=== PATIENT | male | born 1950 | race Caucasian/White ===

== ENCOUNTER 2023-03-09 17:44 | Emergency (ER) | payer MEDICARE, SELFPAY ==
[2023-03-09] VITALS (8 sets, daily range): BP systolic 100–131; BP diastolic 63–95; PULSE 122–151; RESP 16–20; TEMP 36.6; O2SAT 97–100; BMI 26.9; BMI 27.3
--- NOTE | ~2023-03-09 | CT_ITS ---
EXAMINATION: CTA CHEST PE STUDY CLINICAL INFORMATION: tachycardia, SOB, elevated D-dimer COMPARISON: No pertinent prior studies are available for comparison. TECHNIQUE: Prior to contrast administration, noncontrast localization images were obtained. After the administration of 65 mL of Omnipaque nonionic IV contrast, contiguous thin slice helical images were obtained through the thorax. Reformatted MIP images in the coronal and sagittal planes were obtained at the acquisition workstation. This CT examination was performed using dose optimization techniques as appropriate, variously including the following: *Automated exposure control *Adjustment of mA and/or kV according to patient size (this includes techniques or standardized protocols for targeted exams where dose is matched to indication/reason for exam; i.e. extremities or head) *Use of iterative reconstruction technique DLP: 273 mGy-cm. FINDINGS: The bolus timing on this study was acceptable for visualization of the pulmonary arterial tree. Bilateral pulmonary emboli are seen the left-sided pulmonary emboli are seen in the left main pulmonary artery with subtle emboli extending into the left upper lobe and left lower lobe branches with additional segmental and subsegmental emboli in the left lower lobe. On the right side there is subsegmental pulmonary emboli seen in the proximal right lower lobe pulmonary artery with subsegmental disease seen elsewhere in the right lower lobe. There also is irregularity seen within the very dilated right atrium suggesting the possibility of right atrial emboli present at this time. Bilateral moderate-sized pleural effusions with associated dependent airspace disease likely reflecting a component of atelectasis. I do not appreciate any abnormal pulmonary nodules or masses are appreciated. No significant hilar or mediastinal adenopathy. There is no evidence of pleural effusion or pneumothorax. The heart is enlarged with marked biatrial enlargement in particular. There is dilatation of the inferior vena cava and hepatic veins suggesting increased right-sided heart pressures although there is no significant septal bowing to suggest significant right heart strain. Great vessels are normal. Otherwise the mediastinum is unremarkable. There is no pericardial effusion or pericardial thickening. Limited evaluation of the upper abdominal viscera is unremarkable. CT/CT angio chest PE protocol IMPRESSION: 1. Bilateral pulmonary emboli more prominent on the left. There is also an apparent filling defect along the anterolateral wall of the dilated right atrium suggesting the possibility of right atrial emboli. 2. Bilateral pleural effusions and dependent bibasilar airspace disease. 3. VTE: Positive This critical result was discussed with at 03/09/2023 10:31 PM and it was ascertained that the content and urgency of the report was understood at the time of direct communication.
--- NOTE | 2023-03-09 18:02 | ED_ITS ---
HPI - General Adult General Chief complaint: Arrhythmia/Palpitations Stated complaint: sob, oksana.lower leg swelling Time Seen by Provider: 03/09/23 18:22 Source: patient Mode of arrival: ambulatory Limitations: no limitations History of Present Illness HPI narrative: a 73-year-old male known to be healthy came in today for generalized weakness, exertional dyspnea, bilateral lower extremities swelling. Patient's symptoms started about 5 weeks ago with upper respiratory viral symptoms and coughing ever since patient do not feel normal, notice there is a progressive swelling of both lower extremities with tenderness and exertional dyspnea which limits the patient ambulation at home. Patient also sometimes feel lightheadedness and dizziness. Patient went to the kids seen a 5 days ago somebody cleaned the machine with excessive Clorox patient started to cough after smelling the detergent, patient reported coughing blood for the past 5 days after this incident. No known past medical history except for asthma and patient use brother albuterol pump if needed. No chest pain, no abdominal pain, no nausea, no vomiting. Related Data Allergies Allergy/AdvReac Type Severity Reaction Status Date / Time lactase [From Dairy Aid] Allergy Intermediate Hives Verified 03/09/23 17:54 Review of Systems 2 Review of Systems: All other systems are reviewed and are negative Constitutional: Reports as per HPI and Reports no additional constitutional complaints Eyes: Reports as per HPI and Reports no additional eye complaints Reports system reviewed and no additional complaints, except as documented Cardiovascular: Reports as per HPI and Reports no additional cardiovascular complaints Respiratory: Reports as per HPI and Reports no additional respiratory complaints Gastrointestinal: Reports as per HPI and Reports no additional gastrointestinal complaints Genitourinary: Reports no additional female genitourinary complaints Musculoskeletal: Reports no additional musculoskeletal complaints Skin/Breast: Reports system reviewed and no additional complaints, except as docu Psychiatric: Reports no additional psychiatric complaints Endocrine: Reports no additional endocrine complaints Hematologic/Lymphatic: Reports no additional hematologic/lymphatic complaints Allergic/Immunologic: Reports no additional allergic/immunologic complaints Reports system reviewed and no additional complaints, except as documented and Reports Abnormal speech present [facility] Social History Social History Smoked in Last 30 Days: No Use of substances other than those prescribed or required for medical reasons: No Advance Directives: No Advance Directives Information Provided: No Physical Exam ED Vital Signs: Vital Signs - 24 hr 03/09/23 17:55 03/09/23 18:58 03/09/23 19:20 Temperature 97.9 F 97.9 F Pulse Rate 147 H 131 H 139 H Respiratory Rate 20 20 Blood Pressure 126/87 110/85 100/63 Pulse Oximetry 100 100 Oxygen Delivery Method Room Air Room Air 03/09/23 19:55 03/09/23 20:10 03/09/23 23:38 Temperature Pulse Rate 137 H 151 H 136 H Respiratory Rate 18 16 Blood Pressure 122/95 H 131/84 112/79 Pulse Oximetry 97 Oxygen Delivery Method Room Air 03/09/23 23:51 03/10/23 02:02 Temperature Pulse Rate 141 H Respiratory Rate 20 Blood Pressure 126/89 Pulse Oximetry 97 96 Oxygen Delivery Method Room Air Room Air BMI result Body Mass Index 27.3 Vital signs have been reviewed and appear to be correct. Blood pressure elevated. Heart rate normal. Respiratory rate normal. Temperature normal. Oxygen saturation normal. Appearance: Alert. Oriented X3. No acute distress. Head: Normal external exam. Normocephalic. Atraumatic. No Montes signs noted. No raccoon eyes noted Eyes: PERRLA. EOMI. Conjunctiva and sclera normal. Eyelids normal. ENT: TM's Normal. Pharynx normal. Uvula midline. Moist mucous membranes. No trismus noted. No drooling noted. No muffled voice noted. Neck: Normal inspection. Neck supple. FROM. No adenopathy. Thyroid Normal. No meningeal signs. No neck mass noted. CVS: Rapid irregular heart rate. Heart sound normal. No murmurs noted. Pulses normal throughout. Respiratory: No respiratory distress. Painless inspiration. Breath sounds normal. No wheezes/rales/rhonchi noted. Chest nontender. No accessory muscle usage noted or decreased air movement noted. Abdomen: Soft and nontender. Bowel sounds normal in all 4 quadrants. No distention noted. No organomegaly noted. No visible injury noted. Back: No CVA tenderness. Full range of motion noted. Skin: Skin warm and dry. Normal skin color. Normal skin turgor. No rashes/lesions/lacerations noted. Extremities: No lower extremity edema. Extremities exhibit normal range of motion. Extremities nontender. Neuro: Oriented X 3. Cranial nerve exam: II-XII are grossly intact No motor deficit. No sensory deficit. Reflexes normal. Course Course Course Narrative: This is a rapid medical exam: Additional HPI, ROS, PE not included below will be deferred to primary provider. Patient is a 73-year-old male presenting to the ED with complaint of dyspnea and Lower extremity edema worsening over the past week. States symptoms began around Thanksgiving. Feels symptoms began to worsen after he was exposed [place]es [place] . 3+ pitting edema bilat lower extremities, tachycardic to 145-150 in triage, no history of afib, nailbeds dusky and difficulty obtaining O2 sat. Plan: EKG, labs, CXR, weigher and charger notified for room in main ED Reevaluation(s) Reevaluation #1: a 73-year-old male with no known past medical history never seen PCP in the past presented today with few weeks off progression of exertional dyspnea and lower extremity swelling and edema found today to have the following. 1. New onset atrial fibrillation started the patient on IV Cardizem with a temporary control of atrial fibrillation then patient was given a load of digoxin and metoprolol heart rate is in 120s to 130s. 2. Elevated D-dimer and CT angio of the chest showing multiple pulmonary embolism was signed off straining of the right side of the heart, patient still hemodynamically stable case discussed with who recommended not to thrombolysis the patient since he is stable and start heparin drip and transferred the patient to another facility. 3. Case discussed with [facility] awaiting still for final approval. Time: 01:09 Reevaluation #2: case discussed with [facility] transfer line patient has been accepted to [facility] emergency department accepting physician is Dr. Schwartz. Time: 01:50 Medications Administered Generic Name Dose Route Start Last Admin Trade Name Freq PRN Reason Stop Dose Admin Diltiazem HCl 125 mg/ Sodium 125 mls @ 0 mls/hr 03/09/23 19:15 03/09/23 20:13 Chloride IVCONT 0 mg/hr .Q0M REGINALD 0 mls/hr Titration Protocol Per Protocol Heparin Sodium/Sodium Chloride 25,000 unit in 250 mls @ 0 mls/hr 03/09/23 23:15 03/10/23 00:04 Heparin Sodium,Porcine/1/2ns IVCONT 14 units/kg/hr .Q0M REGINALD 12.45 mls/hr Administration Protocol Per Protocol Discontinued Medications Generic Name Dose Route Start Last Admin Trade Name Conner PRN Reason Stop Dose Admin Aspirin 81 mg 03/09/23 18:28 03/09/23 18:41 Aspirin Enteric Coated 81 Mg Tablet. PO 03/09/23 18:29 81 mg ONCE ONE Administration Digoxin 0.25 mg 03/09/23 21:07 03/09/23 21:27 Digoxin 0.5 Mg/2 Ml Ampul IVPUSH 03/09/23 21:08 0.25 mg ONCE ONE Administration Diltiazem HCl 20 mg 03/09/23 18:28 03/09/23 18:41 Diltiazem Hcl 50 Mg/10 Ml Vial IVPUSH 03/09/23 18:29 20 mg STAT STA Administration Heparin Sodium (Porcine) 7,000 unit 03/09/23 23:15 03/10/23 00:00 Heparin Sodium,Porcine 5,000 Unit/Ml Vial 80 unit/kg (7000 unit) 03/09/23 23:16 7,000 unit IVPUSH Administration ONCE ONE Metoprolol Tartrate 5 mg/ 55 mls @ 230 mls/hr 03/10/23 01:42 03/10/23 01:55 Sodium Chloride IV 03/10/23 01:56 230 mls/hr ONCE ONE Administration Iohexol 100 ml 03/09/23 21:48 03/09/23 21:48 Iohexol 350 Mg/Ml 100 Ml Infus..Btl IV 03/09/23 21:49 65 ml ONCE ONE Administration Metoprolol Tartrate 7.5 mg 03/09/23 21:15 03/09/23 21:27 Metoprolol Tartrate 5 Mg/5 Ml Vial IV 03/09/23 21:16 7.5 mg ONCE ONE Administration Medical Decision Making Differential Diagnosis Differential Diagnoses: The differential diagnosis associated with the presentation includes ( New onset atrial fibrillation, congestive heart failure, ACS, pulmonary embolism, pneumonia, pneumothorax, electrolyte abnormality, severe anemia.) Admission/Observation Consideration of admission/observation: Escalation of care including admission/observation considered Lab Data MDM Lab Attestation statement: I reviewed the patient's lab results. 03/09/23 23:50 03/09/23 18:38 Labs: Lab Results 03/09/23 03/09/23 03/09/23 Range/Units 18:37 18:38 18:39 WBC 17.0 H (4.8-10.8) X10*3/uL RBC 5.14 (4.60-5.80) X10*6/uL Hgb 16.7 (14.0-18.0) g/dl Hct 50.4 (42.0-52.0) % MCV 98.1 H (80.0-98.0) fL MCH 32.5 (27.0-33.0) pg MCHC 33.1 (31.0-36.0) g/dl RDW 13.9 (11.0-16.0) % Plt Count 128 L (160-400) X10*3/uL MPV 11.9 (9.4-12.4) fL Immature Gran % (Auto) 0.4 (0.0-0.4) % Neut % (Auto) 88.1 H (45-73) % Lymph % (Auto) 2.8 L (20-40) % [place] % (Auto) 8.6 (2-11) % Eos % (Auto) 0.0 (0-4) % Baso % (Auto) 0.1 (0-2) % Lymph # (Auto) 0.5 L (1.2-4.9) X10*3/uL [place] # (Auto) 1.5 H (0.1-1.2) X10*3/uL Eos # (Auto) 0.0 (0.0-0.4) X10*3/uL Baso # (Auto) 0.0 (0.0-0.2) X10*3/uL Abs Immat Gran (auto) 0.07 H (0.00-0.03) X10*3/uL Absolute Neuts (auto) 15.0 H (2.0-8.3) x10*3/uL Absolute Nucleated RBC 0.040 H (0.0-0.012) X10*3/uL Nucleated RBC % (auto) 0.2 (0.0-0.2) /100WBC PT 18.5 H (11.1-13.3) SEC INR 1.5 H (0.9-1.1) aPTT Heparin Protocol (53-77.9) SEC D-Dimer High Sensitivty 8812 NG/ML Sodium 137 (135-145) mmol/L Potassium 5.5 H (3.3-5.1) mmol/L Chloride 103 (96-108) mmol/L Carbon Dioxide 21 L (22-29) mmol/L Anion Gap 19 (12-20) BUN 51 H (9-16) mg/dL Creatinine 1.33 (0.5-1.4) mg/dL Estim Creat Clear Calc 54.2 Estimated GFR 53 Random Glucose 120 H (60-115) mg/dL Calcium 9.1 (8.4-10.2) mg/dL Total Bilirubin 4.2 H (0.0-1.0) mg/dL AST 39 H (5-37) U/L ALT 75 H (0-40) U/L Alkaline Phosphatase 171 H (39-117) U/L Troponin I High Sens 23.7 (<3.5-35.0) ng/L B-Natriuretic Peptide 1281 H (<100) pg/mL Total Protein 6.6 (6.5-8.0) g/dL Albumin 3.4 L (3.5-5.0) g/dL Urine Color Urine Appearance Urine pH (5.0-9.0) Ur Specific [place] (1.005-1.025) Urine Protein (Neg-Trace) mg/dL Urine Glucose (UA) (Negative) mg/dL Urine Ketones (Negative) mg/dL Urine Blood (Negative) Urine Nitrite (Negative) Ur Leukocyte Esterase (Negative) 03/09/23 Range/Units 23:50 WBC 17.6 H (4.8-10.8) X10*3/uL RBC 5.05 (4.60-5.80) X10*6/uL Hgb 16.1 (14.0-18.0) g/dl Hct 48.7 (42.0-52.0) % MCV 96.4 (80.0-98.0) fL MCH 31.9 (27.0-33.0) pg MCHC 33.1 (31.0-36.0) g/dl RDW 14.1 (11.0-16.0) % Plt Count 138 L (160-400) X10*3/uL MPV 11.5 (9.4-12.4) fL Immature Gran % (Auto) (0.0-0.4) % Neut % (Auto) (45-73) % Lymph % (Auto) (20-40) % [place] % (Auto) (2-11) % Eos % (Auto) (0-4) % Baso % (Auto) (0-2) % Lymph # (Auto) (1.2-4.9) X10*3/uL [place] # (Auto) (0.1-1.2) X10*3/uL Eos # (Auto) (0.0-0.4) X10*3/uL Baso # (Auto) (0.0-0.2) X10*3/uL Abs Immat Gran (auto) (0.00-0.03) X10*3/uL Absolute Neuts (auto) (2.0-8.3) x10*3/uL Absolute Nucleated RBC 0.030 H (0.0-0.012) X10*3/uL Nucleated RBC % (auto) 0.2 (0.0-0.2) /100WBC PT 19.1 H (11.1-13.3) SEC INR 1.6 H (0.9-1.1) aPTT Heparin Protocol 31.8 L (53-77.9) SEC D-Dimer High Sensitivty NG/ML Sodium (135-145) mmol/L Potassium (3.3-5.1) mmol/L Chloride (96-108) mmol/L Carbon Dioxide (22-29) mmol/L Anion Gap (12-20) BUN (9-16) mg/dL Creatinine (0.5-1.4) mg/dL Estim Creat Clear Calc Estimated GFR Random Glucose (60-115) mg/dL Calcium (8.4-10.2) mg/dL Total Bilirubin (0.0-1.0) mg/dL AST (5-37) U/L ALT (0-40) U/L Alkaline Phosphatase (39-117) U/L Troponin I High Sens (<3.5-35.0) ng/L B-Natriuretic Peptide (<100) pg/mL Total Protein (6.5-8.0) g/dL Albumin (3.5-5.0) g/dL Urine Color Dark Yellow Urine Appearance Clear Urine pH 5.0 (5.0-9.0) Ur Specific [place] >= 1.030 H (1.005-1.025) Urine Protein Trace (Neg-Trace) mg/dL Urine Glucose (UA) Negative (Negative) mg/dL Urine Ketones Trace (Negative) mg/dL Urine Blood Negative (Negative) Urine Nitrite Negative (Negative) Ur Leukocyte Esterase Negative (Negative) Independent Interpretation I performed an independent interpretation of an: CT Scan ( CT angio of the chest:1. Bilateral pulmonary emboli more prominent on the left. There is also an apparent filling defect along the anterolateral wall of the dilated right atrium suggesting the possibility of right atrial emboli. 2. Bilateral pleural effusions and dependent bibasilar airspace disea) Radiology Impression Discussion of test interpretation with radiology: I have reviewed the radiologist's reading. Critical Care Time Critical Care Time Critical Care Time: Yes Total Critical Care Time: 75 Attestation: I spent 75 minutes providing critical care service to the patient, this including time spent at the bedside to evaluate the patient, reassess the patient, monitoring vital signs, review labs, and radiographic studies, counseling the patient/family, discussing the case with consultants, disposition the patient. Discharge Plan Discharge Clinical Impression: Atrial fibrillation, new onset, Congestive heart failure, Pulmonary embolism Patient Disposition: [facility] Transfer Details: [facility] Emergency Department
--- NOTE | 2023-03-09 18:03 | ECG_ITS ---
Test Reason : AFIB Blood Pressure : / mmHG Vent. Rate : 152 BPM Atrial Rate : 000 BPM P-R Int : 000 ms QRS Dur : 090 ms QT Int : 306 ms P-R-T Axes : 000 035 147 degrees QTc Int : 486 ms Artifact in tracing Atrial fibrillation with rapid ventricular response Low voltage QRS Septal infarct , age undetermined Abnormal ECG No previous ECGs available Referred By: Amy Maddox Electronically Signed By:NAOMY MARIEE
[2023-03-09] MEDS: Aspirin Enteric Coated 81 MG TABLET.DR PO (18:41)
[2023-03-09] MEDS: dilTIAZem HCL 50 MG/10 ML VIAL 20 MG IVPUSH (18:41)
[2023-03-09 18:51] LABS: MANUAL DIFF FLAG NO
[2023-03-09 18:54] LABS: Basophils Percent Auto 0.1 % (0-2); Hematocrit 50.4 % (42.0-52.0); Hemoglobin 16.7 g/dl (14.0-18.0); Imm Gran Abs Auto 0.07 X10*3/uL (0.00-0.03); Imm Gran Pct Auto 0.4 % (0.0-0.4); Lymphocytes Absolute Auto 0.5 X10*3/uL (1.2-4.9); Lymphocytes Percent Auto 2.8 % (20-40); Mean Corpuscular HGB Conc 33.1 g/dl (31.0-36.0); Mean Corpuscular Hemoglobin 32.5 pg (27.0-33.0); Mean Corpuscular Volume 98.1 fL (80.0-98.0); Mean Platelet Volume 11.9 fL (9.4-12.4); Monocytes Absolute Auto 1.5 X10*3/uL (0.1-1.2); Monocytes Percent Auto 8.6 % (2-11); NRBC Pct Auto 0.2 /100WBC (0.0-0.2); Neutrophils Percent Auto 88.1 % (45-73); Platelet Count 128 X10*3/uL (160-400); Red Blood Count 5.14 X10*6/uL (4.60-5.80); Red Cell Distribution Width 13.9 % (11.0-16.0)
[2023-03-09 19:00] LABS: INTERNATIONAL NORM RATIO 1.5 (0.9-1.1); Prothrombin Time 18.5 SEC (11.1-13.3)
[2023-03-09 19:09] LABS: Alanine Aminotransferase 75 U/L (0-40); Albumin Level 3.4 g/dL (3.5-5.0); Alkaline Phosphatase 171 U/L (39-117); Anion Gap 19 (12-20); Aspartate Amino Transferase 39 U/L (5-37); Bilirubin Total 4.2 mg/dL (0.0-1.0); Blood Urea Nitrogen 51 mg/dL (9-16); Calcium 9.1 mg/dL (8.4-10.2); Carbon Dioxide 21 mmol/L (22-29); Chloride 103 mmol/L (96-108); Creatinine Clr Calc Pharmacy 54.2; Estimated Glomerular Filt Rate 53; Glucose Random 120 mg/dL (60-115); Potassium 5.5 mmol/L (3.3-5.1); Sodium 137 mmol/L (135-145); Total Protein 6.6 g/dL (6.5-8.0)
[2023-03-09 19:14] LABS: Troponin-I High Sensitivity 23.7 ng/L (<3.5-35.0)
[2023-03-09 19:18] LABS: D Dimer High Sensitivity 8812 NG/ML
[2023-03-09 19:33] LABS: B Type Natriuretic Peptide 1281 pg/mL (<100)
[2023-03-09] MEDS: dilTIAZem HCL 125 MG in 0.9 % Sodium Chloride 100 ML 10 MG IVCONT (19:40)
--- NOTE | 2023-03-09 20:13 | PC.NURSE ---
Pt heart rate remains elevated. Dr Tsang aware, ordered to stop dilt drip and we will try digoxin.
[2023-03-09] MEDS: Digoxin 0.5 MG/2 ML AMPUL 0.25 MG IVPUSH (21:27)
[2023-03-09] MEDS: Metoprolol Tartrate 5 MG/5 ML VIAL 7.5 MG IV (21:27)
[2023-03-09] MEDS: iohexoL 350 MG/ML 100 ML INFUS..BTL IV (21:48)
[2023-03-09 23:56] LABS: Hematocrit 48.7 % (42.0-52.0); Hemoglobin 16.1 g/dl (14.0-18.0); Mean Corpuscular HGB Conc 33.1 g/dl (31.0-36.0); Mean Corpuscular Hemoglobin 31.9 pg (27.0-33.0); Mean Corpuscular Volume 96.4 fL (80.0-98.0); Mean Platelet Volume 11.5 fL (9.4-12.4); NRBC Pct Auto 0.2 /100WBC (0.0-0.2); Platelet Count 138 X10*3/uL (160-400); Red Blood Count 5.05 X10*6/uL (4.60-5.80); Red Cell Distribution Width 14.1 % (11.0-16.0); White Blood Count 17.6 X10*3/uL (4.8-10.8)
[2023-03-09 23:58] LABS: Appearance Urine Clear; Color Urine Dark Yellow; Glucose Urine UA Negative (Negative); Leukocyte Esterase Urine Negative (Negative); Nitrite Urine Negative (Negative); Specific Gravity - Urine >= 1.030 (1.005-1.025); Urine Blood Negative (Negative); Urine Ketones Trace mg/dL (Negative); Urine Protein Trace mg/dL (Neg-Trace)
[2023-03-10] MEDS: Heparin Sodium,Porcine 5,000 UNIT/ML VIAL 7000 UNIT IVPUSH
[2023-03-10 00:04] LABS: INTERNATIONAL NORM RATIO 1.6 (0.9-1.1); Prothrombin Time 19.1 SEC (11.1-13.3)
[2023-03-10] MEDS: Heparin Sodium,Porcine/1/2NS 25,000 UNIT/250 ML IV.SOLN 12.45 UNIT IVCONT (00:04)
[2023-03-10 00:06] LABS: PTT Heparin Drip 31.8 SEC (53-77.9)
[2023-03-10] MEDS: Metoprolol Tartrate 5 MG in 0.9 % Sodium Chloride 50 ML 230 MG IV (01:55)
[2023-03-10 02:02] VITALS: BP 126/89; PULSE 141; RESP 20; O2SAT 96
[2023-03-10 04:31] VITALS: BP 101/70; PULSE 127; RESP 18; O2SAT 94
[2023-03-10 06:10] VITALS: BP 98/62; PULSE 108; RESP 16; O2SAT 95
[2023-03-10 06:22] LABS: Hematocrit 44.7 % (42.0-52.0); Hemoglobin 14.7 g/dl (14.0-18.0); Mean Corpuscular HGB Conc 32.9 g/dl (31.0-36.0); Mean Corpuscular Hemoglobin 31.7 pg (27.0-33.0); Mean Corpuscular Volume 96.5 fL (80.0-98.0); Mean Platelet Volume 11.4 fL (9.4-12.4); NRBC Pct Auto 0.1 /100WBC (0.0-0.2); Platelet Count 134 X10*3/uL (160-400); Red Blood Count 4.63 X10*6/uL (4.60-5.80); Red Cell Distribution Width 14.1 % (11.0-16.0)
[2023-03-10] MEDS: Heparin Sodium,Porcine 5,000 UNIT/ML VIAL 7100 UNIT IVPUSH (06:35)
--- NOTE | 2023-03-10 06:37 | MHC.EDTECH ---
CALL OUT TO [facility] AT [address] CHEATHAM FOR POSSIBLE TRANSFER DEMOGRAPHICS WERE FAXED AND TRANSFER WAS ACCEPTED
--- NOTE | 2023-03-10 06:40 | PC.NURSE ---
PTT-HD came back at 31.8. Per protocol, bolus of 80u/kg was given and dose rate increased by 4u/kg. MARGARITA Miranda witnessed.
--- NOTE | 2023-03-10 06:41 | MHC.EDTECH ---
CALL OUT TO [facility] 0238 [facility] 0240 NO ALS TRANSPORTATION WAS AVAILABLE
[2023-03-10 06:45] LABS: INTERNATIONAL NORM RATIO 1.6 (0.9-1.1); Prothrombin Time 19.7 SEC (11.1-13.3)
--- NOTE | 2023-03-10 06:46 | MHC.EDTECH ---
CALL OUT TO [facility] AT 0246 TO BOOK TRANSPORT FOR PT TO [facility], NO AVAILABLE ALS TRUCKS UNTIL 0700 TRANSPORT WAS BOOKED FOR 0700
--- NOTE | 2023-03-10 07:03 | PM.CCN ---
Critical Care Event Note Summary Date of Service: 03/10/23 Code activated: No Narrative: Dr. Rosales called me late last night about Mr. Catalan in regards to management of his pulmonary emboli. IMO, the following were the salient features of his presentation: First, his PE was chronic (likely starting 5 weeks ago). The normal troponin and normal/near normal A-a gradient attest to that. Second, his PE burden was likely quite large. Ie. likely had VTE in his right atrium, and possibly/likely in his IVC and extending down into his legs. Third, he was hemod stable (BP-durbin) and oxygenation pretty normal, so no need for TPA at this time. Furthermore, if the PE are chronic, TPA less likely to be helpful, if at all. I had mult d/w with Dr. Rosales. 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 Possibly might even require heart surgery. I spoke with the transfer center at [facility] and then with Dr. Magdaleno (?sp), their superintendent quarry magnetic resonance technologist. He was in agreement with all the above and was willing to accept the patient in transfer. He was going to speak to their transfer center to see if a bed was available. I let Dr. Rosales know and he spoke with the [facility] transfer center. Time (mult telephone calls and text messages with ED and with [facility] message center, plus two extended telephone calls w [facility] transfer center and w Dr. Magdaleno): 45+ min. Critical Care Time (minutes): 0
--- NOTE | 2023-03-10 07:18 | PC.NURSE ---
Pt most recent PTT-HD drawn at 0600. Results were misread and pt was treated related to PTT-HD from 21:30 last night. Bolus of 80u/kg heparin given by mistake. Heparin drip remains at 14u/kg/hr. Pharmacy, Lab, commissioned sales associate and Clinical Coordinator aware. At this time, no signs of bruising, bleeding, or pain. I informed oncoming nurse.
[2023-03-10 07:30] VITALS: BP 127/85; PULSE 144; RESP 19; O2SAT 95
[2023-03-10] MEDS: Metoprolol Tartrate 5 MG/5 ML VIAL IVPUSH (07:38)
== END 2023-03-10 07:45 | disposition short-term general hospital (02) ==
PROVIDERS: Registered Nurse Emergency; Emergency Provider Emergency Medicine; PCP Internal Medicine
DX: I26.99 Other pulmonary embolism without acute cor pulmonale (principal); I48.91 Unspecified atrial fibrillation; I50.9 Heart failure, unspecified
CPT/HCPCS: 36415; 71275; 80053; 81003; 83880; 84484; 85025; 85027; 85379; 85610; 85730; 93005; 96365; 96367; 96375; 99285; J1160; J1644; Q9967

== ENCOUNTER → 2023-03-09 18:03 | Outpatient (BNV) | payer MEDICARE, SELFPAY | PROVIDERS: Emergency Provider Emergency Medicine; PCP Internal Medicine; Visit Provider Internal Medicine | DX: I48.91 Unspecified atrial fibrillation (principal); R94.31 Abnormal electrocardiogram [ECG] [EKG] | CPT/HCPCS: 93010 ==

== ENCOUNTER → 2023-03-09 18:32 | Outpatient (BNV) | payer MEDICARE, SELFPAY | PROVIDERS: Emergency Provider Emergency Medicine; PCP Internal Medicine; Visit Provider Anesthesiology | DX: I26.99 Other pulmonary embolism without acute cor pulmonale (principal) | CPT/HCPCS: 99358 ==